=== PATIENT | female | born 1940 | race Caucasian/White ===

== ENCOUNTER → 2018-11-22 | Outpatient (CLI) | payer MEDICARE, BC ==
--- NOTE | 2018-11-23 10:51 | RADIOLOGY REPORT (SQ) ---
EXAM DESCRIPTION: MRIRLJ WO COMPLETED DATE/TIME: 11/22/2018 10:54 am REASON FOR STUDY: UNILATERAL PRIMARY OSTEOARTHRITIS,RIGHT HIP COMPARISON: None. TECHNIQUE: Noncontrast multiplanar MR imaging. Sequences include wide field of view pelvis and focu sed hip of interest. Fat sensitive, water sensitive, and cartilage sensitive sequences. Specific hip of interest: Right LIMITATIONS: None. FINDINGS: MARROW SIGNAL: Normal, no evidence of replacement, occult fracture or suspicious bone lesi on in the visualized lumbar spine, pelvis and proximal femurs. SPECIFIC HIP OF INTEREST: No significant joint effusion. No fracture or AVN. Mild hip joint space narrowing with minimal subchondral cyst formation along the posterolateral acetabulum and abutting fe mur. Slight fraying and irregularity of the labrum, most pronounced anterosuperiorly. There is irre gular fluid overlying the greater trochanter and extending inferiorly along the iliotibial tract. Th is is consistent with extensive tear along the gluteus sergio insertion. Fluid measures up to 5 cm transverse dimension by almost 10 cm craniocaudal. There is atrophy in the gluteus minimus and mediu s muscles as well. OPPOSITE HIP: Similar degenerative changes. No fracture or AVN. No significant effusion. REMAINDER OF THE OSSEOUS PELVIS: SI joints normal. Symphasis pubis intact. No Avulsion injury evide nt. INTRA- AND EXTRAPELVIC SOFT TISSUES: No intrapelvic mass or free fluid. Bladder normal. No extrapelv ic mass. No inguinal hernia or adenopathy. IMPRESSION: 1. Right gluteal changes as above. Irregular extensive fluid along the gluteus sergio insertion wit h additional fatty atrophy in the remaining gluteal musculature. 2. Right hip DJD, as above. 3. No fracture or worrisome bone lesion. No evidence of AVN. Reading location - [email or web address]
== END ==
LOC: RAD 09:53
PROVIDERS: ATTEND Orthopaedic Surgery Sports Medicine
DX: M16.11 Unilateral primary osteoarthritis, right hip (principal)